=== PATIENT | female | born 1945 | race African-American/Black ===

== ENCOUNTER 2017-12-03 08:50 | Emergency (ER) | payer MEDICARE, OTHER ==
[~2017-12-03] VITALS: Ht 162.6 cm; Wt 65.0 kg
[2017-12-03] MEDS ORDERED: SODIUM CHLORIDE 0.9% 500 ML IV ONE (09:46)
[2017-12-03 10:12] LABS: EOSINOPHILS % 2.9 % (0.0-5.0); HEMATOCRIT. 39.6 % (36.0-48.0); HEMOGLOBIN. 13.8 g/dL (12.0-16.0); LYMPHOCYTES % 28.6 % (20.0-50.0); MEAN CORPUSCULAR HEMOGLOBIN 30.3 pg (28.0-32.0); MEAN PLATELET VOLUME 8.6 fl (7.4-10.4); MONOCYTES % 8.5 % (2.0-8.0); PLATELET 206 x1000/uL (130-400); RED BLOOD CELL COUNT 4.55 mill/uL (4.2-5.4); RED CELL DISTRIBUTION WIDTH 12.6 % (11.6-14.6)
[2017-12-03] MEDS ORDERED: ONDANSETRON HCL 4MG/2ML VIAL IV ONE (10:15)
[2017-12-03] MEDS ORDERED: MORPHINE SULFATE 2 MG/ML CPJ (NOT FOR IM USE) IV ONE (10:15)
[2017-12-03 10:20] LABS: CHLORIDE 107 mEq/L (98-107)
[2017-12-03 10:24] LABS: CREATINE KINASE 162 IU/L (26-192)
[2017-12-03 10:25] LABS: CREATINE KINASE MB FRACTION 3.3 ng/mL (0.5-3.6)
[2017-12-03 10:26] LABS: PROTHROMBIN TIME 10.7 sec (9.4-11.6)
[2017-12-03 13:06] VITALS: BP 134/82
== END 2017-12-03 13:20 | disposition short-term general hospital (02) ==
LOC: ER 09:05
DX: R07.2 Precordial pain (principal); E86.0 Dehydration; V43.52XA Car driver injured in collision with other type car in traffic accident, initial encounter; Y93.89 Activity, other specified; Y99.8 Other external cause status; Y92.410 Unspecified street and highway as the place of occurrence of the external cause; Z79.82 Long term (current) use of aspirin
CPT/HCPCS: 36415; 71045; 71120; 80048; 82550; 82553; 83880; 84484; 85025; 85610; 85730; 93005; 96360; 96361; 99291; J7040